=== PATIENT | male | born 2005 | race Caucasian/White ===

== ENCOUNTER 2025-06-30 19:24 | Emergency (ER) | payer OTHER ==
[~2025-06-30] VITALS: Ht 170.2 cm; Wt 63.6 kg
[2025-06-30 19:55] VITALS: TEMP 98.7
[2025-07-01 00:45] VITALS: BP 125/64; PULSE 64; RESP 18; O2SAT 98
[2025-07-01] MEDS: IBUPROFEN 400 MG TABLET PO ONE (00:51)
[2025-07-01] MEDS: ACETAMINOPHEN 500 MG TABLET PO ONE (00:51)
== END 2025-07-01 02:17 | disposition home or self-care (01) ==
LOC: EMS 19:26
DX: S90.111A Contusion of right great toe without damage to nail, initial encounter (principal); F12.90 Cannabis use, unspecified, uncomplicated; X58.XXXA Exposure to other specified factors, initial encounter; Y93.89 Activity, other specified; Y92.89 Other specified places as the place of occurrence of the external cause; Y99.8 Other external cause status
CPT/HCPCS: 99283